=== PATIENT | male | born 1940 | race Caucasian/White ===

== ENCOUNTER 2018-02-28 06:19 | Day surgery (SDC) | payer MEDICARE ==
[~2018-02-28] VITALS: Ht 180.3 cm; Wt 90.6 kg
[2018-02-28] VITALS (8 sets, daily range): BP systolic 99–136; BP diastolic 58–76
[~2018-02-28 06:19] MED LIST: ASPI-1265 PO; ATOR40TA PO; CITA20TA11 PO; GLIM4TAB79 PO; METF500T PO; PIOG45TA PO
[2018-02-28] MEDS ORDERED: ceFAZolin inj. 2,000 MG in normal saline soln 50 ML IV ONE (06:45)
[2018-02-28] MEDS ORDERED: CANA1TAB5 (07:05)
[2018-02-28] MEDS ORDERED: GLIM1TAB46 PO (07:05)
[2018-02-28] MEDS ORDERED: TRAM50TA2 PO (07:05)
[2018-02-28] MEDS ORDERED: FLO0.4C PO (07:05)
[2018-02-28] MEDS ORDERED: CLOP75TA15 PO ×2 (07:05→08:21)
[2018-02-28] MEDS ORDERED: FLUO10CA51 (07:05)
[2018-02-28] MEDS ORDERED: ATOR40TA71 PO (07:05)
[2018-02-28] MEDS ORDERED: CARVEDILOL PO (07:05)
[2018-02-28] MEDS: normal saline 1000ml 1,000 ML IV PRN ×2 (07:30→09:02)
[2018-02-28 07:31] LABS: BASOPHILS % (AUTO) 0.2 % (0-1); EOSINOPHILS # (AUTO) 0.2 X10'3 (0-0.9); EOSINOPHILS % (AUTO) 1.8 % (0-6); HEMATOCRIT 40.9 % (42.0-52.0); HEMOGLOBIN 13.8 g/dl (14.0-17.9); LYMPHOCYTES # (AUTO) 2.3 X10'3 (1.1-4.8); LYMPHOCYTES % (AUTO) 18.1 % (21-51); MEAN CORPUSCULAR HEMOGLOBIN 33.7 PG (27.0-31.0); MEAN CORPUSCULAR HGB CONC 33.8 % (33.0-36.5); MEAN CORPUSCULAR VOLUME 99.7 FL (78-98); MEAN PLATELET VOLUME 8.6 FL (7.4-10.4); MONOCYTES # (AUTO) 1.1 X10'3 (0-0.9); MONOCYTES % (AUTO) 8.8 % (2-12); NEUTROPHILS # (AUTO) 9.1 X10'3 (1.8-7.7); NEUTROPHILS % (AUTO) 71.1 % (42-75); PLATELET COUNT 178 X10'3 (140-440); RED CELL DISTRIBUTION WIDTH 14.2 % (11.5-14.5); WHITE BLOOD COUNT 12.8 X10'3 (4.5-11.0)
[2018-02-28] MEDS ORDERED: LIDOcaine 1%/PF (10mg/ml) 5ml vial ONE (08:34)
[2018-02-28] MEDS ORDERED: iohexol 300 MG/1 ML 50ml polymer ONE (08:34)
[2018-02-28] MEDS ORDERED: midazolam 2 mg/2 ml injection ONE (08:48)
[2018-02-28] MEDS ORDERED: fentaNYL/PF 50MCG/1 ML 2ML syringe ONE (08:48)
[2018-02-28] MEDS ORDERED: diphenhydrAMINE 50 mg/ml inj ONE (08:48)
[2018-02-28] MEDS ORDERED: diphenhydrAMINE 50 mg/ml inj IV ONE (08:50)
[2018-02-28] MEDS ORDERED: midazolam 2 mg/2 ml injection IV PRN (08:50)
[2018-02-28] MEDS ORDERED: LIDOcaine 1%/PF (10mg/ml) 5ml vial SQ ONE (08:50)
[2018-02-28] MEDS ORDERED: fentaNYL/PF 50MCG/1 ML 2ML syringe IV PRN (08:50)
[2018-02-28] MEDS ORDERED: normal saline 1000ml 1,000 ML IV SCH (10:11)
[2018-02-28] MEDS ORDERED: HYDROcodone/acetaminophen 5mg/325mg tablet PO PRN (10:15)
[2018-02-28] MEDS ORDERED: morphine 4 MG/ML inj SYRINge IV PRN (10:15)
== END 2018-02-28 13:13 | disposition home or self-care (01) ==
LOC: SSTAY O 06:19
PROVIDERS: ATTEND Radiology Vascular & Interventional Radiology
DX: M48.54XA Collapsed vertebra, not elsewhere classified, thoracic region, initial encounter for fracture (principal); E78.5 Hyperlipidemia, unspecified; I11.0 Hypertensive heart disease with heart failure; I50.9 Heart failure, unspecified; G47.33 Obstructive sleep apnea (adult) (pediatric); N40.0 Benign prostatic hyperplasia without lower urinary tract symptoms; F41.9 Anxiety disorder, unspecified; E11.9 Type 2 diabetes mellitus without complications; I25.10 Atherosclerotic heart disease of native coronary artery without angina pectoris; Z87.891 Personal history of nicotine dependence; Z90.49 Acquired absence of other specified parts of digestive tract; Z90.89 Acquired absence of other organs; Z98.41 Cataract extraction status, right eye; Z98.42 Cataract extraction status, left eye; Z86.73 Personal history of transient ischemic attack (TIA), and cerebral infarction without residual deficits; Z85.51 Personal history of malignant neoplasm of bladder; Z79.84 Long term (current) use of oral hypoglycemic drugs; Z79.01 Long term (current) use of anticoagulants; Z79.82 Long term (current) use of aspirin; Z79.891 Long term (current) use of opiate analgesic; Z98.890 Other specified postprocedural states; Z79.899 Other long term (current) drug therapy
CPT/HCPCS: 22513; 36415; 82948; 85025; 85610; 99152; 99153; J0690; J1200; J2001; J2250; J3010; J7030; Q9967; A4620

== ENCOUNTER 2018-12-30 06:23 | Day surgery (SDC) | payer MEDICARE ==
[2018-12-27 15:23] LABS: BASOPHILS % (AUTO) 0.6 % (0-1); EOSINOPHILS # (AUTO) 0.1 X10'3 (0-0.9); EOSINOPHILS % (AUTO) 0.8 % (0-6); LYMPHOCYTES # (AUTO) 1.9 X10'3 (1.1-4.8); LYMPHOCYTES % (AUTO) 22.2 % (21-51); MEAN CORPUSCULAR HEMOGLOBIN 33.8 PG (27.0-31.0); MEAN CORPUSCULAR HGB CONC 33.7 g/dL (33.0-36.5); MEAN CORPUSCULAR VOLUME 100.3 FL (78-98); MONOCYTES # (AUTO) 0.9 X10'3 (0-0.9); MONOCYTES % (AUTO) 10.9 % (2-12); NEUTROPHILS # (AUTO) 5.5 X10'3 (1.8-7.7); NEUTROPHILS % (AUTO) 65.5 % (42-75); PRE OP HEMATOCRIT 41.4 % (42.0-52.0); PRE OP PLATELET COUNT 204 X10'3 (140-440); RED BLOOD COUNT 4.13 X10'6 (4.70-6.10); RED CELL DISTRIBUTION WIDTH 14.1 % (11.5-14.5)
[2018-12-27 15:32] LABS: PRE OP PROTIME 9.9 SECONDS (9.0-12.0)
[2018-12-27 15:37] LABS: ALBUMIN 2.9 G/DL (3.4-5.0); ALBUMIN/GLOBULIN RATIO 0.6 (1.1-1.5); ALKALINE PHOSPHATASE 75 IU/L (46-116); BLOOD UREA NITROGEN 22 MG/DL (7-18); BUN/CREATININE RATIO 20.2 (5.4-32.0); CALCIUM 9.4 MG/DL (8.5-10.1); CHLORIDE 102 MMOL/L (99-107); CREATININE 1.09 MG/DL (0.60-1.10); PRE OP ALT 25 U/L (30-65); PRE OP ANION GAP 9 (8-16); PRE OP AST 19 U/L (10-37); PRE OP BILIRUB, TOTAL 0.3 MG/DL (0.0-1.0); PRE OP POTASSIUM 4.4 MMOL/L (3.4-5.1); PRE OP SODIUM 136 MMOL/L (135-145); TOTAL CARBON DIOXIDE 24.9 MMOL/L (24-32); TOTAL PROTEIN 7.7 G/DL (6.4-8.2); eGFR 65 ML/MIN
[2018-12-27 15:41] LABS: HEMOGLOBIN A1C 7.9 % (4.5-6.2); PRE OP GLUCOSE 215 MG/DL (70-104)
[~2018-12-30] VITALS: Ht 180.3 cm; Wt 90.3 kg
[~2018-12-30 06:23] MED LIST changes: -ATOR40TA PO; +ATOR40TA71 PO; +CANA1TAB5 PO; +CARV-49 PO; -CITA20TA11 PO; +CLOP75TA15 PO; +DOCUMENT DATE & TIME OF BETA-BLOCKER PO ONE; +FLUO10CA51 PO; -METF500T PO; +ceFAZolin 2gm in dextrose, iso 100 ML IV ONE; +famotidine 20mg tablet PO ONE; +ringers solution, lacted 1,000 ML IV SCH
[2018-12-30 06:45] VITALS: BP 144/70
[2018-12-30] MEDS ORDERED: LIDOcaine 1% (10mg/ml) 2ml vial ONE (07:00)
[2018-12-30] MEDS ORDERED: LIDOcaine 0.5% (5mg/ml) 50ml vial ONE (08:13)
[2018-12-30] MEDS ORDERED: BUPIVAcaine/PF 2.5mg/ml (0.25%) 10ml vial ONE (08:33)
[2018-12-30] MEDS ORDERED: fentaNYL/PF 50MCG/1 ML 2ML syringe ONE (08:55)
[2018-12-30] MEDS ORDERED: midazolam 2 mg/2 ml injection ONE (08:56)
[2018-12-30] MEDS ORDERED: propofol inj 20 ML IV ONE (09:20)
[2018-12-30 09:30] VITALS: BP 119/68
--- NOTE | 2018-12-30 09:30 | NUR ---
Received from OR via , accompanied by Anesthesiologist DR TAMAYO and report given by Anesthesiolgist. PT IS AWAKE, ALERT, ORENTED, MOVES EXT X 4, SKIN WARM AND PINK, VSS, ICE TO RIGHT WRIST, NO C/O PAIN, PIV LEFT WRIST 20G WITH LR 100ML/HR.
[2018-12-30 09:40] VITALS: BP 111/52
[2018-12-30 09:50] VITALS: BP 112/61
[2018-12-30 10:00] VITALS: BP 130/68
--- NOTE | 2018-12-30 10:00 | NUR ---
PATIENT MEETS CRITERIA FOR DISCHARGE, VSS, NO C/O PAIN, SENSATION WNL RIGHT UE, UP INDEP'LY TO DRESS, IV REMOVED, AND DISCHARGE INSTRUCTIONS REVIEWED WITH PATIENT. WRITTEN INSTRUCTIONS SENT WITH PATIENT. DISCHARGED OUT OF BUILDING AT 1000 VIA W/C WITH [employer]ER [employer].
== END 2018-12-30 10:00 | disposition home or self-care (01) ==
LOC: PAS 06:23
PROVIDERS: ATTEND Orthopaedic Surgery Hand Surgery
DX: G56.01 Carpal tunnel syndrome, right upper limb (principal); G56.21 Lesion of ulnar nerve, right upper limb; E11.9 Type 2 diabetes mellitus without complications; Z79.84 Long term (current) use of oral hypoglycemic drugs; Z79.899 Other long term (current) drug therapy; Z87.891 Personal history of nicotine dependence; M19.90 Unspecified osteoarthritis, unspecified site; Z87.442 Personal history of urinary calculi; Z85.51 Personal history of malignant neoplasm of bladder
CPT/HCPCS: 36415; 64721; 80053; 82948; 83036; 85025; 85610; 85730; 93005; A6222; A6449; J0690; J2001; J2250; J2704; J3010; J3490; J7120

== ENCOUNTER 2022-06-26 14:53 | Emergency (ER) | payer MEDICARE ==
[~2022-06-26] VITALS: Ht 177.8 cm; Wt 81.4 kg
[~2022-06-26 14:53] MED LIST changes: -DOCUMENT DATE & TIME OF BETA-BLOCKER PO ONE; +GLIM4TAB7 PO; -GLIM4TAB79 PO; -ceFAZolin 2gm in dextrose, iso 100 ML IV ONE; -famotidine 20mg tablet PO ONE; -ringers solution, lacted 1,000 ML IV SCH
[2022-06-26 18:42] VITALS: BP 130/40
== END 2022-06-26 18:44 | disposition home or self-care (01) ==
LOC: ER 14:54
DX: S00.01XA Abrasion of scalp, initial encounter (principal); R41.0 Disorientation, unspecified; M79.641 Pain in right hand; Z79.82 Long term (current) use of aspirin; Z79.899 Other long term (current) drug therapy; W01.0XXA Fall on same level from slipping, tripping and stumbling without subsequent striking against object, initial encounter; Y93.89 Activity, other specified; Y92.89 Other specified places as the place of occurrence of the external cause; Y99.8 Other external cause status
CPT/HCPCS: 70450; 72125; 99284